=== PATIENT | female | born 1980 | race Caucasian/White ===

== ENCOUNTER 2019-07-10 11:49 | Emergency (ER) | payer OTHER, SELFPAY ==
--- NOTE | 2019-07-10 11:54 | ED.GENADULT ---
HPI - General Adult General Stated complaint: cough/nausea/body aches/headaches Time Seen by Provider: 07/10/19 12:08 Source: patient Mode of arrival: ambulatory Limitations: no limitations History of Present Illness HPI narrative: 39-year-old female patient presents the [facility] care with complaints of cough for the past 3 days along with drainage to the back of the throat for the past week. Denies any fevers. Denies any ear pain. Patient states her nose has felt a little stuffy recently. Patient states she has had some drainage to the back of her throat, some throat irritation as well as a cough. Patient states that when she coughs she does cough up brown sputum at times. Denies any chest pain or shortness of breath. Denies any abdominal pain, nausea, vomiting or diarrhea. Patient states that she is an active smoker. Denies taking anything for her symptoms so far. Patient states that her sister was diagnosed with COVID-19 about 2 months ago. Related Data Allergies Allergy/AdvReac Type Severity Reaction Status Date / Time latex Allergy Unknown Unverified 10/29/13 00:44 Review of Systems Review of Systems: Narrative: CONSTITUTIONAL: Denies fever, chills, or sweats. EYES: Denies visual changes, redness, or discharge. ENT: Positive rhinorrhea, congestion, sore throat, denies otalgia. CARDIOVASCULAR: Denies chest pain, palpitations, or edema. RESPIRATORY: Positive cough, denies dyspnea. GASTROINTESTINAL: Denies abdominal pain, nausea, vomiting, or diarrhea. GENITOURINARY: Denies dysuria or hematuria. SKIN: Denies rash or itching. MUSCULOSKELETAL: Denies back pain, joint pain, or myalgia. NEUROLOGIC: Denies headache, numbness, or weakness. PSYCHIATRIC: Denies anxiety or depression. PMFSH Comments At the time of my signature I agree with nursing past medical history, surgical, social, and family history. There is no relevant family history pertinent to the presenting complaint. Exam Narrative: Exam Narrative: GENERAL: Well-appearing, well-nourished, and in no acute distress. HEAD: Normocephalic, atraumatic. No tenderness noted to frontal maxillary sinuses on palpation EYES: PERRLA and EOMI. ENT: Nares with erythema and edema noted bilaterally, no rhinorrhea or epistaxis. Mucous membranes moist. Posterior pharynx with some postnasal drip present along with slight erythema but no tonsil enlargement, no exudates or lesions present. Bilateral TMs are clear no erythema or foreign bodies in the canal. NECK: Supple. No lymphadenopathy CHEST: Clear to auscultation. No respiratory distress. Patient able talk in clear complete sentences. No tripoding noted HEART: Regular rate and rhythm. No murmur heard. Normal peripheral pulses. ABDOMEN: Soft, nontender, nondistended, normal active bowel sounds. EXTREMITIES: Normal range of motion. No edema. SKIN: Warm, dry, no rash. NEURO: No focal deficits. Alert and oriented x3. Course Vital Signs Vital signs: Vital Signs Temperature 36.9 C 07/10/19 12:00 Pulse Rate 86 07/10/19 12:00 Respiratory Rate 20 07/10/19 12:00 Blood Pressure 122/89 07/10/19 12:00 Pulse Oximetry 100 07/10/19 12:00 Temperature 36.9 C 07/10/19 12:00 Pulse Rate 86 07/10/19 12:00 Respiratory Rate 20 07/10/19 12:00 Blood Pressure 122/89 07/10/19 12:00 Pulse Oximetry 100 07/10/19 12:00 Vital signs reviewed. The patient has been informed that they may have pre-hypertension or Hypertension based on a BP reading in the department. I recommend that the patient call the primary care provider listed on their discharge instructions or a physician of their choice this week to arrange follow up for further evaluation of possible pre-hypertension or Hypertension Medical Decision Making Differential Diagnosis Differential Diagnosis: Differential diagnosis: Allergic rhinitis, chronic sinusitis, tonsillitis, acute sinusitis, infectious mononucleosis, seasonal influenza, pertussis, diphtheria, mening
[2019-07-10 12:00] VITALS: BP 122/89; PULSE 86; RESP 20; TEMP 36.9; O2SAT 100
== END 2019-07-10 12:25 | disposition home or self-care (01) ==
PROVIDERS: Emergency Provider Nurse Practitioner Family
DX: J06.9 Acute upper respiratory infection, unspecified (principal); J30.9 Allergic rhinitis, unspecified; Z20.828 Contact with and (suspected) exposure to other viral communicable diseases
CPT/HCPCS: 87635; 99203; C9803; G0463; U0003

== ENCOUNTER → 2019-07-10 15:48 | Outpatient (NON) | payer OTHER, SELFPAY ==
[2019-07-12 12:55] LABS: SARS-CoV-2 RNA PCR Negative
== END ==
PROVIDERS: Visit Provider Nurse Practitioner Family
DX: R05 Cough (principal); R51 Headache; R11.0 Nausea; Z20.828 Contact with and (suspected) exposure to other viral communicable diseases
CPT/HCPCS: 87635; C9803; U0003

== ENCOUNTER 2019-09-19 13:58 | Emergency (ER) | payer OTHER, SELFPAY ==
[2019-09-19 14:16] VITALS: BP 124/85; PULSE 79; RESP 18; TEMP 37; O2SAT 99
--- NOTE | 2019-09-19 14:18 | ED.NAVMDI ---
HPI - Nausea/Vomiting/Diarrhea General Chief complaint: Nausea/Vomiting/Diarrhea Stated complaint: Nausea Time Seen by Provider: 09/19/19 14:19 Source: patient and RN notes reviewed History of Present Illness HPI Narrative: Patient is a 39-year-old female who presents the urgent care with complaints of nausea and vomiting since Monday. Patient states that the last time she had vomited was yesterday morning. States that she has been able to keep down soup, crackers and water today and currently denies of any nausea, vomiting, abdominal pain, diarrhea or fever. Patient states that she did miss work and is needing a work excuse . Patient has not tried anything [id number] for her symptoms. States that her diet consists of a lot of high fatty fast foods as well as an influx and coffee and soda. No other acute complaints. No acute distress noted. Patient aware of plan of care. Related Data Home Medications Medication Instructions Recorded Confirmed fexofenadine [Collette Allergy] 180 mg PO DAILY 09/19/19 09/19/19 Allergies Allergy/AdvReac Type Severity Reaction Status Date / Time latex Allergy Unknown Hives Unverified 09/19/19 14:27 Review of Systems Review of Systems: Narrative: CONSTITUTIONAL: Denies fever, chills, or sweats. EYES: Denies visual changes, redness, or discharge. ENT: Denies rhinorrhea, congestion, sore throat, or otalgia. CARDIOVASCULAR: Denies chest pain, palpitations, or edema. RESPIRATORY: Denies cough or dyspnea. GASTROINTESTINAL: Reports of intermittent nausea and vomiting which is since resolved GENITOURINARY: Denies dysuria or hematuria. SKIN: Denies rash or itching. MUSCULOSKELETAL: Denies back pain, joint pain, or myalgia. NEUROLOGIC: Denies headache, numbness, or weakness. All other systems reviewed are negative, except as documented in HPI. PMFSH Comments At the time of my signature, I reviewed and agree with the nursing past medical, surgical, social, and family history. There is no relevant family history pertinent to the patient complaint. Exam Narrative: Exam Narrative: GENERAL: This is a well-nourished, well-developed patient, in no apparent distress. HEAD: normocephalic, atraumatic. EYES: PERRL. Sclera clear/white. Vision is grossly intact. EARS: External ears normal NOSE: External nose normal with no obvious nasal discharge, nares without redness, no rhinorrhea. THROAT: Mucous membranes moist NECK: Neck supple CARDIOVASCULAR: Regular rate and rhythm without murmurs, gallops, or rubs. GASTROINTESTINAL: Abdomen soft, mild epigastric tenderness, nondistended. Bowel sounds are active. SKIN: warm, intact with no suspicious lesions or rash, good texture and turgor. NEURO: awake, alert, and oriented to person, place and time. There were no obvious focal neurologic abnormalities. EXTREMITIES: No clubbing, cyanosis, or edema. Course Vital Signs Vital signs: Vital Signs Temperature 98.6 F 09/19/19 14:16 Pulse Rate 79 09/19/19 14:16 Respiratory Rate 18 09/19/19 14:16 Blood Pressure 124/85 09/19/19 14:16 Pulse Oximetry 99 09/19/19 14:16 Temperature 98.6 F 09/19/19 14:16 Pulse Rate 79 09/19/19 14:16 Respiratory Rate 18 09/19/19 14:16 Blood Pressure 124/85 09/19/19 14:16 Pulse Oximetry 99 09/19/19 14:16 Reviewed MDM - Nausea/Vomiting/Diarrhea MDM Narrative Medical decision making narrative: Advised the patient to use Zantac daily and Tums intermittently throughout the day as needed. Use Zofran as needed for nausea. Symptoms are likely related to reflux and poor dieting. Advised the patient to limit her caffeine and soda intake throughout the day. Do not eat prior to bedtime. Limit the high fatty fast foods. Even foods such as tomatoes and red sauce have a high acidity and may exacerbate your symptoms. Advised the patient to go to the emergency room if she experiences any increase in pain associated with fever, nausea, vomiting, abdominal pain.
== END 2019-09-19 14:47 | disposition home or self-care (01) ==
PROVIDERS: Emergency Provider Nurse Practitioner Family
DX: K21.9 Gastro-esophageal reflux disease without esophagitis (principal); E78.00 Pure hypercholesterolemia, unspecified
CPT/HCPCS: 99213; G0463

== ENCOUNTER 2022-12-06 16:50 | Emergency (ER) | payer OTHER, SELFPAY ==
[2022-12-06 17:02] VITALS: BP 135/90; PULSE 74; RESP 20; TEMP 36.4; O2SAT 98
--- NOTE | 2022-12-06 17:22 | ED.HA ---
HPI - Headache General Chief Complaint: Headache Stated Complaint: migraine Source: patient and RN notes reviewed History of Present Illness HPI Narrative: 42 yo F presents to urgent care with complaints of a right sided migraine since May. Pt states she has been working with her doctor and her neurologist and they can't seem to get it under control. Pt states she has dizziness as well but that is nothing new and been going on since October. Pt denies any fevers, chills, vomiting, chest pain, or SOB. Pt has taken her at home meds for the migraine with no relief and was supposed to see her MD for an unknown shot today but her MD had to cancel and told her to come here. Related Data Home Medications Medication Instructions Recorded Confirmed fexofenadine 180 mg tablet 180 mg PO DAILY 09/19/19 09/19/19 (Collette Allergy) atenolol 25 mg tablet mg 12/06/22 escitalopram oxalate 10 mg tablet mg 12/06/22 meclizine 25 mg tablet mg 12/06/22 rimegepant 75 mg disintegrating mg 12/06/22 tablet (Nurtec ODT) topiramate 50 mg tablet mg 12/06/22 Allergies Allergy/AdvReac Type Severity Reaction Status Date / Time latex Allergy Unknown Hives Unverified 09/19/19 14:27 Review of Systems Review of Systems: CONSTITUTIONAL: Denies fever, chills, or sweats. EYES: Denies visual changes, redness, or discharge. ENT: Denies otalgia and sore throat CARDIOVASCULAR: Denies chest pain, palpitations, or edema. RESPIRATORY: Denies cough or dyspnea. GASTROINTESTINAL: Denies abdominal pain, nausea, vomiting, or diarrhea. GENITOURINARY: Denies dysuria or hematuria. SKIN: Denies rash or itching. MUSCULOSKELETAL: Denies back pain, joint pain, or myalgia. NEUROLOGIC: + CADET Pertinent positives per HPI. PMFSH Comments At the time of my signature, I reviewed and agree with the nursing past medical, surgical, social, and family history. There is no relevant family history pertinent to the patient complaint. Exam Narrative: GENERAL: This is a well-nourished, well-developed patient, in no apparent distress. HEAD: normocephalic, atraumatic. EYES: Sclera clear/white. Vision is grossly intact. EARS: External ears normal, auditory canals clear and without drainage. Hearing grossly intact. NOSE: External nose normal with no obvious nasal discharge, nares without redness, no rhinorrhea. THROAT: Mucous membranes moist, posterior pharynx clear. NECK: Neck supple, non-tender without lymphadenopathy, masses or thyromegaly. CARDIOVASCULAR: Regular rate and rhythm without murmurs, gallops, or rubs. RESPIRATORY: Clear to auscultation. Breath sounds equal bilaterally. No wheezes, rales, or rhonchi. GASTROINTESTINAL: Abdomen soft, non-tender, nondistended. Bowel sounds are active. No hepato-splenomegaly, or palpable masses. No guarding. SKIN: warm, intact with no suspicious lesions or rash, good texture and turgor. NEURO: awake, alert, and oriented to person, place and time. There were no obvious focal neurologic abnormalities. Course Course Level of Care: Express Care Visit Vital Signs Vital signs: Vital Signs Temperature 97.5 F L 12/06/22 17:02 Pulse Rate 74 12/06/22 17:02 Respiratory Rate 20 12/06/22 17:02 Blood Pressure 135/90 12/06/22 17:02 Pulse Oximetry 98 12/06/22 17:02 Oxygen Delivery Room Air 12/06/22 17:02 Temperature 97.5 F L 12/06/22 17:02 Pulse Rate 74 12/06/22 17:02 Respiratory Rate 20 12/06/22 17:02 Blood Pressure 135/90 12/06/22 17:02 Pulse Oximetry 98 12/06/22 17:02 Oxygen Delivery Room Air 12/06/22 17:02 reviewed. MDM - Headache MDM Narrative Medical decision making narrative: Stay well hydrated and get plenty of rest. Go to the ER with any new or worsening symptoms. Differential Diagnosis Differential diagnosis: Likely migraine, tension headache, headache and sinusitis Critical Care Time Critical Care Time Critical Care Time: No Discharge Plan Discharge Cl
[2022-12-06] MEDS: KETOROLAC 30 MG/ML VIAL (*BKC) IM (17:35)
== END 2022-12-06 17:59 | disposition home or self-care (01) ==
PROVIDERS: Emergency Provider Nurse Practitioner Family
DX: G43.901 Migraine, unspecified, not intractable, with status migrainosus (principal); E78.00 Pure hypercholesterolemia, unspecified
CPT/HCPCS: 96372; 99203; G0463; J1885